=== PATIENT | male | born 1945 | race Caucasian/White ===

== ENCOUNTER 2020-08-07 09:10 | Inpatient (IN) | payer OTHER ==
[~2020-08-07] VITALS: Ht 175.3 cm; Wt 77.5 kg
[2020-08-07] VITALS (14 sets, daily range): BP systolic 117–143; BP diastolic 48–117
[2020-08-07] MEDS ORDERED: SODIUM CHLORIDE 0.9% 1,000 ML IV ONE ×3 (09:30→11:00)
[2020-08-07] MEDS ORDERED: PANTOPRAZOLE 40 MG/10 ML VIAL INJ IV ONE (09:45)
[2020-08-07 09:47] LABS: Basophils # (auto) 0 10 ^3/uL (0-0.2); Basophils % (auto) 0.2 % (0.0-2.0); Eosinophils # (auto) 0 10 ^3/uL (0-0.8); Lymphocytes # (auto) 1.2 10 ^3/uL (0.4-5.4); Monocytes # (auto) 2.1 10 ^3/uL (0-1.3); Platelet Count (auto) 472 10^3/uL (140-450)
[2020-08-07 09:48] LABS: Hematocrit 48.1 % (41.0-53.0); Hemoglobin 15.4 g/dL (13.5-17.5); Lymphocytes % (auto) 5.1 % (10.0-50.0); Mean Corpuscular Hemoglobin 29.6 pg (28.0-32.0); Mean Corpuscular Hgb Conc. 32.1 g/dL (32.0-36.0); Mean Corpuscular Volume 92.4 fL (80.0-100.0); Neutrophils # (auto) 20.5 10 ^3/uL (1.6-8.6); Neutrophils % (auto) 85.7 % (37.0-80.0); Red Blood Cells 5.21 10^6/uL (4.5-5.90); Red Cell Distribution Width 14.7 % (11.8-14.3); White Blood Cell 23.9 10^3/uL (4.4-10.8)
[2020-08-07 10:05] LABS: INR 0.98 (0.9-1.15); Partial Thromboplastin Time 25.1 sec (23.0-31.2)
[2020-08-07] MEDS ORDERED: InsuLIN REG 1unit/0.01ml Soln (100units/ml) IV ONE (10:15)
[2020-08-07 10:25] LABS: Lactic Acid w/Reflex 3.3 mmol/L (0.4-2.0); Potassium 3.8 mmol/L (3.5-5.1)
[2020-08-07 10:32] LABS: Albumin 3.9 g/dL (3.4-5.0); BUN/Creatinine Ratio 24.5; Bilirubin, Total 0.6 mg/dL (0.2-1.0); Calcium 9.5 mg/dL (8.5-10.1); Total Protein 8.1 g/dL (6.4-8.2)
[2020-08-07] MEDS ORDERED: DEXTROSE (50%) 50ML SYRG IV PRN ×2 (10:45→19:45)
[2020-08-07] MEDS ORDERED: InsuLIN R (HUMAN) 100 UNITS in SODIUM CHL 0.9% 99 ML IV SCH ×2 (10:45→20:15)
[2020-08-07] MEDS ORDERED: PIPERACILLIN-TAZOB 3.375GM 100 ML IV ONE (11:00)
[2020-08-07] MEDS ORDERED: SODIUM BICARBONATE 8.4 % INJ 50ML VIAL IV ONE (11:15)
[2020-08-07 11:20] LABS: Magnesium 3.1 mg/dL (1.6-2.6); Phosphorus 5.6 mg/dL (2.5-4.90)
[2020-08-07] MEDS: SODIUM CHLORIDE 0.9% 1,000 ML IV SCH ×4 (11:32→22:10)
[2020-08-07] MEDS: ACCU-CHEK COMFORT CURVE STRIP VI SCH ×8 (12:16→21:55)
[2020-08-07] MEDS ORDERED: ONDANSETRON HCL 4 MG/2 ML VIAL IV PRN (12:45)
[2020-08-07] MEDS ORDERED: MORPHINE SULF INJ 2 MG/ML SYRINGE 1ML IV PRN (12:45)
[2020-08-07] MEDS ORDERED: NITROGLYCERIN 0.4 MG SL TAB SL PRN (12:45)
[2020-08-07] MEDS ORDERED: SITA100T7 PO (12:57)
[2020-08-07] MEDS ORDERED: ATOR40TA52 PO (12:57)
[2020-08-07] MEDS ORDERED: METF-372 PO (12:57)
[2020-08-07] MEDS ORDERED: GLIP10TA9 PO (12:57)
[2020-08-07] MEDS ORDERED: LOSA-69 PO (12:57)
[2020-08-07] MEDS ORDERED: SODIUM CHLORIDE 0.9% 1,000 ML IV SCH (14:45)
[2020-08-07 18:52] LABS: Calcium 8.2 mg/dL (8.5-10.1); Potassium 3.5 mmol/L (3.5-5.1)
[2020-08-07] MEDS ORDERED: INSULIN LANTUS (GLARGINE) 1 /0.01ml (100units/ml) SC ONE (19:45)
[2020-08-07] MEDS: ATORVASTATIN 20 MG TAB PO SCH (21:55)
[2020-08-07] MEDS: InsuLIN REG 1unit/0.01ml Soln (100units/ml) SC SCH (22:00)
[2020-08-07 22:10] LABS: Calcium 8.5 mg/dL (8.5-10.1)
[2020-08-07 22:12] LABS: BUN/Creatinine Ratio 25.2
[2020-08-08] VITALS (20 sets, daily range): BP systolic 115–154; BP diastolic 53–75
[2020-08-08 00:59] LABS: Urine Amorphous Crystal FEW /hpf (None Seen); Urine Bacteria NONE SEEN /hpf (None Seen); Urine Blood Negative /uL (Negative); Urine Specific Gravity 1.022 (1.001-1.035); Urine WBC 2 /hpf (0 - 3)
[2020-08-08 04:54] LABS: Potassium 3.5 mmol/L (3.5-5.1)
[2020-08-08 05:00] LABS: BUN/Creatinine Ratio 27.1; Calcium 8.2 mg/dL (8.5-10.1); Magnesium 2.6 mg/dL (1.6-2.6)
[2020-08-08] MEDS: ACCU-CHEK COMFORT CURVE STRIP VI SCH ×4 (07:14→22:00)
[2020-08-08] MEDS: InsuLIN REG 1unit/0.01ml Soln (100units/ml) SC SCH ×4 (07:15→22:04)
[2020-08-08] MEDS: SODIUM CHLORIDE 0.9% 1,000 ML IV SCH (07:18)
[2020-08-08 11:35] LABS: Basophils # (auto) 0 10 ^3/uL (0-0.2); Basophils % (auto) 0.1 % (0.0-2.0); Eosinophils # (auto) 0 10 ^3/uL (0-0.8); Hematocrit 43.5 % (41.0-53.0); Hemoglobin 14.4 g/dL (13.5-17.5); Lymphocytes # (auto) 1.1 10 ^3/uL (0.4-5.4); Lymphocytes % (auto) 5.7 % (10.0-50.0); Mean Corpuscular Hemoglobin 29.6 pg (28.0-32.0); Mean Corpuscular Hgb Conc. 33.1 g/dL (32.0-36.0); Mean Corpuscular Volume 89.6 fL (80.0-100.0); Monocytes # (auto) 1.7 10 ^3/uL (0-1.3); Monocytes % (auto) 8.7 % (0.0-12.0); Neutrophils # (auto) 16.9 10 ^3/uL (1.6-8.6); Neutrophils % (auto) 85.5 % (37.0-80.0); Platelet Count (auto) 387 10^3/uL (140-450); Red Blood Cells 4.85 10^6/uL (4.5-5.90); Red Cell Distribution Width 14.7 % (11.8-14.3); White Blood Cell 19.7 10^3/uL (4.4-10.8)
[2020-08-08] MEDS ORDERED: NALOXONE HCL 0.4 MG/ML VIAL ONE (12:20)
[2020-08-08] MEDS ORDERED: LIDOCAINE VISCOUS 2% 15ML UD ONE (12:20)
[2020-08-08] MEDS ORDERED: FLUMAZENIL 0.1 MG/ML INJ 10ML MDV IV ONE (12:20)
[2020-08-08] MEDS ORDERED: SODIUM CHLORIDE LOCK 10 ML ONE (12:20)
[2020-08-08] MEDS ORDERED: diphenhdrAMINE HCL 50 MG/1 ML VL ONE (12:21)
[2020-08-08] MEDS: fentaNYL CITRATE 100 MCG/2 ML VL ONE ×2 (12:54→12:55)
[2020-08-08] MEDS: MIDAZOLAM HCL 5 MG/ML-1ML VIAL ONE ×2 (12:54→12:55)
[2020-08-08] MEDS: SUCRALFATE 1 GM/10 ML ORAL SUSP GT SCH ×2 (17:17→22:00)
[2020-08-08] MEDS: PANTOPRAZOLE 40 MG TAB PO SCH (22:00)
[2020-08-08] MEDS: ATORVASTATIN 20 MG TAB PO SCH (22:00)
[2020-08-09 04:54] VITALS: BP 162/74
[2020-08-09] MEDS: SUCRALFATE 1 GM/10 ML ORAL SUSP GT SCH ×3 (06:00→17:51)
[2020-08-09] MEDS: ACCU-CHEK COMFORT CURVE STRIP VI SCH ×3 (06:05→17:51)
[2020-08-09] MEDS: InsuLIN REG 1unit/0.01ml Soln (100units/ml) SC SCH ×3 (06:07→17:56)
[2020-08-09 06:36] LABS: Basophils # (auto) 0 10 ^3/uL (0-0.2); Basophils % (auto) 0.1 % (0.0-2.0); Eosinophils # (auto) 0 10 ^3/uL (0-0.8); Hematocrit 42.4 % (41.0-53.0); Hemoglobin 14.5 g/dL (13.5-17.5); Lymphocytes # (auto) 1.1 10 ^3/uL (0.4-5.4); Mean Corpuscular Hemoglobin 29.8 pg (28.0-32.0); Mean Corpuscular Hgb Conc. 34.2 g/dL (32.0-36.0); Mean Corpuscular Volume 87.2 fL (80.0-100.0); Monocytes # (auto) 1.4 10 ^3/uL (0-1.3); Monocytes % (auto) 7.6 % (0.0-12.0); Neutrophils % (auto) 86.3 % (37.0-80.0); Nucleated Red Blood Cells % 0.1 %; Platelet Count (auto) 417 10^3/uL (140-450); Red Blood Cells 4.86 10^6/uL (4.5-5.90); Red Cell Distribution Width 14.7 % (11.8-14.3); White Blood Cell 18.5 10^3/uL (4.4-10.8)
[2020-08-09 06:37] LABS: BUN/Creatinine Ratio 22.5; Calcium 8.9 mg/dL (8.5-10.1); Potassium 3.2 mmol/L (3.5-5.1)
[2020-08-09] MEDS: PANTOPRAZOLE 40 MG TAB PO SCH (11:53)
[2020-08-09 13:00] VITALS: BP 161/88
[2020-08-09] MEDS ORDERED: INSULIN LANTUS (GLARGINE) 1 /0.01ml (100units/ml) SC SCH ×2 (13:30→18:00)
[2020-08-09 17:00] VITALS: BP 129/77
[2020-08-09] MEDS ORDERED: BLOO-200 XX (18:51)
[2020-08-09] MEDS ORDERED: ALCO1PAD XX (18:51)
[2020-08-09] MEDS ORDERED: PANT40T PO (18:51)
[2020-08-09] MEDS ORDERED: SUCR1SUS10 PO (18:51)
[2020-08-09] MEDS ORDERED: INSU100I44 SC (18:51)
[2020-08-09] MEDS ORDERED: INSUINJ37 SC (18:51)
[2020-08-09] MEDS ORDERED: [UNRECOGNIZED DRUG - CODE] XX (18:51)
[2020-08-09 19:41] VITALS: BP 150/76
[2020-08-09 20:26] VITALS: BP 150/76
== END 2020-08-09 22:50 | disposition home health service (06) | DRG 391 ==
LOC: EDBD 09:10 → ER 09:10 → OVERFLOW 09:11 → ICU WEST 13:28 → TELE-CENTR 08-08 22:33
PROVIDERS: ADMIT Internal Medicine; ATTEND Internal Medicine
PROC: 0DB68ZX Excision of Stomach, Via Natural or Artificial Opening Endoscopic, Diagnostic (ICD-10-PCS; principal; 2020-08-08 11:30)
DX: K20.9 Esophagitis, unspecified (principal); E11.10 Type 2 diabetes mellitus with ketoacidosis without coma; K92.0 Hematemesis; I24.8 Other forms of acute ischemic heart disease; E78.5 Hyperlipidemia, unspecified; E86.0 Dehydration; G20 Parkinson's disease; I10 Essential (primary) hypertension; Z22.322 Carrier or suspected carrier of Methicillin resistant Staphylococcus aureus; K59.00 Constipation, unspecified; B96.81 Helicobacter pylori [H. pylori] as the cause of diseases classified elsewhere
CPT/HCPCS: 36415; 36600; 43239; 70450; 71045; 74176; 80048; 80053; 81001; 82010; 82805; 82962; 83036; 83605; 83735; 83930; 84100; 84484; 85025; 85610; 85730; 87040; 87081; 87086; 96361; 96365; 96366; 96367; 96375; 99291; C9113; G0378; J1815; J2250; J2543

== ENCOUNTER 2020-09-30 11:34 | Inpatient (IN) | payer OTHER ==
[~2020-09-30] VITALS: Ht 182.9 cm; Wt 67.5 kg
[~2020-09-30 11:34] MED LIST: ALCO1PAD XX; ATOR40TA52 PO; BLOO-200 XX; INSU100I44 SC; INSUINJ37 SC; LOSA-69 PO; PANT40T PO; SUCR1SUS10 PO; [UNRECOGNIZED DRUG - CODE] XX
[2020-09-30 13:14] LABS: Basophils # (auto) 0 10 ^3/uL (0-0.2); Basophils % (auto) 0.3 % (0.0-2.0); Eosinophils # (auto) 0.1 10 ^3/uL (0-0.8); Eosinophils % (auto) 0.6 % (0.0-7.0); Hematocrit 37.8 % (41.0-53.0); Hemoglobin 12.9 g/dL (13.5-17.5); Lymphocytes # (auto) 1.4 10 ^3/uL (0.4-5.4); Lymphocytes % (auto) 9.5 % (10.0-50.0); Mean Corpuscular Hemoglobin 28.8 pg (28.0-32.0); Mean Corpuscular Hgb Conc. 34.1 g/dL (32.0-36.0); Mean Corpuscular Volume 84.6 fL (80.0-100.0); Monocytes # (auto) 1.5 10 ^3/uL (0-1.3); Monocytes % (auto) 10.1 % (0.0-12.0); Neutrophils # (auto) 11.7 10 ^3/uL (1.6-8.6); Neutrophils % (auto) 79.5 % (37.0-80.0); Platelet Count (auto) 266 10^3/uL (140-450); Red Blood Cells 4.47 10^6/uL (4.5-5.90); Red Cell Distribution Width 15.4 % (11.8-14.3); White Blood Cell 14.7 10^3/uL (4.4-10.8)
[2020-09-30 15:18] LABS: Anion Gap 7 (5-15); Blood Urea Nitrogen 40 mg/dL (7-18); Calcium 9.6 mg/dL (8.5-10.1); Carbon Dioxide 24 mmol/L (21-32); Chloride 104 mmol/L (98-107); Glucose 199 mg/dL (74-106); Potassium 3.8 mmol/L (3.5-5.1); Sodium 135 mmol/L (136-145)
[2020-09-30 15:23] LABS: Alanine Aminotransferase 18 U/L (16-61); Alkaline Phosphatase 109 U/L (45-117); Aspartate Aminotransferase 12 U/L (15-37); BUN/Creatinine Ratio 25.6; Bilirubin, Total 0.3 mg/dL (0.2-1.0); GFR African American 56 mL/min; GFR Non-African American 46 mL/min; Total Protein 6.2 g/dL (6.4-8.2)
[2020-09-30] MEDS ORDERED: NITROGLYCERIN 0.4 MG SL TAB SL PRN (16:45)
[2020-09-30] MEDS ORDERED: SOD CHL 0.45% 1,000 ML IV ONE (16:45)
[2020-09-30] MEDS ORDERED: ONDANSETRON HCL 4 MG/2 ML VIAL IV PRN (16:45)
[2020-09-30] MEDS ORDERED: ACETAMINOPHEN 325 MG TAB PO PRN (16:45)
[2020-09-30] MEDS ORDERED: MORPHINE SULF INJ 2 MG/ML SYRINGE 1ML IV PRN ×2 (16:45)
[2020-09-30] MEDS ORDERED: DEXTROSE (50%) 50ML SYRG IV PRN (17:00)
[2020-09-30] MEDS: SUCRALFATE 1 GM/10 ML ORAL SUSP PO SCH ×2 (17:00→22:17)
[2020-09-30] MEDS: ACCU-CHEK COMFORT CURVE STRIP VI SCH ×2 (17:10→22:18)
[2020-09-30] MEDS: cefTRIAXone 1GM/50ML D5W 50 ML IV SCH (17:13)
[2020-09-30] MEDS: InsuLIN REG 1unit/0.01ml Soln (100units/ml) SC SCH ×2 (17:18→22:18)
[2020-09-30] MEDS: ATORVASTATIN 20 MG TAB PO SCH (17:26)
--- NOTE | 2020-09-30 18:25 | NUR ---
Patient transferred to unit in stable condition.
[2020-09-30 18:55] VITALS: BP 159/84
--- NOTE | 2020-09-30 19:30 | NUR ---
Opening Shift Note Assumed care of patient, awake and alert. No S/S of distress/SOB or pain. Safety measures in place, bed in lowest locked position, bed rails raised x2, call light within reach. Lane catheter noted, preset on arrival, pt states catheter was placed on due to urinary incontinence. All needs addressed at this time. Instructed on POC and to call for assist PRN, will continue to monitor for changes Q1hr and PRN.
[2020-09-30 19:45] VITALS: BP 147/62
--- NOTE | 2020-09-30 21:00 | NUR ---
Admission completed with patient, however, patient is poor historian. Pt unaware of home meds. Will attempt to reach for further clarification on PMH and reconcile meds.
[2020-09-30 22:00] VITALS: BP 147/62
[2020-09-30] MEDS: PANTOPRAZOLE 40 MG TAB PO SCH (22:17)
[2020-09-30 22:50] LABS: Folate (Folic Acid) 9.36 ng/mL (5.38-24)
[2020-10-01 05:20] VITALS: BP 132/65
[2020-10-01] MEDS: ACCU-CHEK COMFORT CURVE STRIP VI SCH ×4 (06:23→21:57)
[2020-10-01] MEDS: SUCRALFATE 1 GM/10 ML ORAL SUSP PO SCH ×4 (06:31→21:56)
[2020-10-01] MEDS: InsuLIN REG 1unit/0.01ml Soln (100units/ml) SC SCH ×5 (06:32→22:02)
[2020-10-01 07:59] LABS: Basophils # (auto) 0 10 ^3/uL (0-0.2); Basophils % (auto) 0.3 % (0.0-2.0); Eosinophils # (auto) 0.4 10 ^3/uL (0-0.8); Eosinophils % (auto) 3.5 % (0.0-7.0); Hematocrit 36.7 % (41.0-53.0); Hemoglobin 12.1 g/dL (13.5-17.5); Lymphocytes # (auto) 1.8 10 ^3/uL (0.4-5.4); Lymphocytes % (auto) 15.7 % (10.0-50.0); Mean Corpuscular Hemoglobin 27.7 pg (28.0-32.0); Mean Corpuscular Hgb Conc. 32.8 g/dL (32.0-36.0); Mean Corpuscular Volume 84.5 fL (80.0-100.0); Monocytes # (auto) 1.1 10 ^3/uL (0-1.3); Monocytes % (auto) 9.8 % (0.0-12.0); Neutrophils # (auto) 7.9 10 ^3/uL (1.6-8.6); Neutrophils % (auto) 70.7 % (37.0-80.0); Platelet Count (auto) 258 10^3/uL (140-450); Red Blood Cells 4.35 10^6/uL (4.5-5.90); Red Cell Distribution Width 15.1 % (11.8-14.3); White Blood Cell 11.2 10^3/uL (4.4-10.8)
[2020-10-01 08:43] LABS: BUN/Creatinine Ratio 14.9; Calcium 8.8 mg/dL (8.5-10.1); Magnesium 1.9 mg/dL (1.6-2.6)
[2020-10-01 08:57] LABS: Potassium 2.7 mmol/L (3.5-5.1)
[2020-10-01 09:00] VITALS: BP 126/68
--- NOTE | 2020-10-01 09:00 | NUR ---
Critical Potassium Hospitalist paged regarding critical potassium 2.7 awaiting call back.
--- NOTE | 2020-10-01 09:30 | NUR ---
Critical Potassium Verbal orders received for potassium replacement. Orders read back and verified. Will enter in eMAR.
[2020-10-01] MEDS ORDERED: POTASSIUM CHLORIDE 40 MEQ, LIDOCAINE 1% (LOCAL ANESTH.) 4 ML in SODIUM CHL 0.9% 250 ML IV ONE (09:45)
[2020-10-01] MEDS ORDERED: POTASSIUM CHL 20 Meq TABLET PO ONE (09:45)
[2020-10-01] MEDS: PANTOPRAZOLE 40 MG TAB PO SCH ×2 (10:07→21:56)
[2020-10-01] MEDS: cefTRIAXone 1GM/50ML D5W 50 ML IV SCH (10:07)
[2020-10-01] MEDS: INSULIN LANTUS (GLARGINE) 1 /0.01ml (100units/ml) SC SCH (10:12)
--- NOTE | 2020-10-01 12:13 | NUR ---
Orthostatic Vitals Supine - P. 69, R. 14, O2. 98, B/P. 143/71 Sitting - P. 73, R. 16, O2. 97, B/P. 136/67 Standing - P. 82, R. 14, O2. 99, B/P. 133/68
[2020-10-01 13:00] VITALS: BP 136/67
--- NOTE | 2020-10-01 14:15 | NUR ---
Phone Call received from Dr. Augustine Patient to be transferred to higher level of care, he needs TAVR done. As per MD, [facility] was already notified.
--- NOTE | 2020-10-01 15:44 | NUR ---
Acute Care Transfer Spoke with Dr. Lubin ([phone] cell / Office [phone]) accepting MD at [facility] regarding patient. house manager will fax required documents to him. He will follow up with [facility] regarding patient's transfer.
--- NOTE | 2020-10-01 15:58 | NUR ---
EEG-ELECTROENCEPHALOGRAM COMPLETED AT BEDSIDE @ 0500. VY MCKEON.
--- NOTE | 2020-10-01 16:29 | NUR ---
1600 10/01/20 - faxed to [facility] at [phone], faxed to carbon paper coating supervisor Nicolle at [phone], faxed to Dr Hairston at [phone] and to [facility] at [phone], face sheet, order for transfer to higher level of care for severe aortic stenosis, needs TAVR, H/P, ECHO, labs, meds, discharge summary, Contacted [facility] at [phone] patient on "will call". [facility] counseling case manager provided the following authorizations for facility [id number] and for [facility] transportation [phone]. Contacted Dr Hairston at [phone] who stated the nursing carbon paper coating supervisor Nicolle had informed him that currently there are no beds available but will try to get patient moved later tonight or tomorrow. Informed nurse BRL of information above.
--- NOTE | 2020-10-01 16:50 | NUR ---
Room Change Patient transferred from room 251B to room 215A with all personal belongings.
--- NOTE | 2020-10-01 17:15 | NUR ---
Room Change Patient transferred from room 215A to room 209 with all personal belongings.
[2020-10-01] MEDS: ATORVASTATIN 20 MG TAB PO SCH (17:51)
--- NOTE | 2020-10-01 19:15 | NUR ---
Opening Shift Note Assumed care of patient, awake and alert. No S/S of distress/SOB or pain. Safety measures in place, bed in lowest locked position, bed raisl raised x2, call light within reach, bed alarm armed. All needs addressed at this time. Pt awaiting bed assignment at [facility] for higher level of care. Instructed on POC and to call for assist PRN, will continue to monitor for changes Q1hr and PRN.
[2020-10-01 22:00] VITALS: BP 145/68
[2020-10-02 05:00] VITALS: BP 156/83
[2020-10-02 05:51] LABS: Basophils # (auto) 0 10 ^3/uL (0-0.2); Basophils % (auto) 0.4 % (0.0-2.0); Eosinophils # (auto) 0.6 10 ^3/uL (0-0.8); Eosinophils % (auto) 5.2 % (0.0-7.0); Hemoglobin 12.6 g/dL (13.5-17.5); Lymphocytes # (auto) 2.4 10 ^3/uL (0.4-5.4); Lymphocytes % (auto) 23.1 % (10.0-50.0); Mean Corpuscular Hemoglobin 27.9 pg (28.0-32.0); Mean Corpuscular Hgb Conc. 33.2 g/dL (32.0-36.0); Mean Corpuscular Volume 84.1 fL (80.0-100.0); Monocytes # (auto) 1.1 10 ^3/uL (0-1.3); Monocytes % (auto) 10.9 % (0.0-12.0); Neutrophils # (auto) 6.3 10 ^3/uL (1.6-8.6); Neutrophils % (auto) 60.4 % (37.0-80.0); Platelet Count (auto) 298 10^3/uL (140-450); Red Blood Cells 4.51 10^6/uL (4.5-5.90); Red Cell Distribution Width 14.8 % (11.8-14.3); White Blood Cell 10.5 10^3/uL (4.4-10.8)
[2020-10-02 06:12] LABS: Calcium 9.1 mg/dL (8.5-10.1); Potassium 3.3 mmol/L (3.5-5.1)
[2020-10-02 06:15] LABS: Albumin 3.2 g/dL (3.4-5.0); BUN/Creatinine Ratio 13.9
[2020-10-02 06:18] LABS: Bilirubin, Total 0.6 mg/dL (0.2-1.0); Total Protein 7.2 g/dL (6.4-8.2)
[2020-10-02] MEDS: ACCU-CHEK COMFORT CURVE STRIP VI SCH ×4 (06:26→21:55)
[2020-10-02] MEDS: SUCRALFATE 1 GM/10 ML ORAL SUSP PO SCH ×4 (06:26→21:55)
[2020-10-02] MEDS: InsuLIN REG 1unit/0.01ml Soln (100units/ml) SC SCH ×4 (06:46→22:01)
--- NOTE | 2020-10-02 07:20 | NUR ---
Opening Shift Note Assumed care of patient, resting comfortably in bed and alert. No S/S of distress/SOB or pain. Patient's skin is in tact and bowel sounds throughout. Weak pulses palpated in the lower extremities. Leg bag secured to the right leg with 300 ML noted. Updated patient his transfer and that we are awaiting a bed assignment from [facility] Patient verbalized understanding. Safety measures are in place and the call light is within reach of the patient. Will continue to monitor for changes Q1hr and PRN.
[2020-10-02 08:00] VITALS: BP 156/83
[2020-10-02 09:00] VITALS: BP 154/77
[2020-10-02] MEDS ORDERED: POTASSIUM CHL 20 Meq TABLET PO ONE (09:00)
--- NOTE | 2020-10-02 09:45 | NUR ---
Dr. Augustine at bedside Dr. Augustine at bedside discussing the POC with the patient. All questions and concerns were answered at this time.
[2020-10-02] MEDS: cefTRIAXone 1GM/50ML D5W 50 ML IV SCH (10:28)
[2020-10-02] MEDS: PANTOPRAZOLE 40 MG TAB PO SCH ×2 (10:28→21:55)
[2020-10-02] MEDS: INSULIN LANTUS (GLARGINE) 1 /0.01ml (100units/ml) SC SCH (10:30)
--- NOTE | 2020-10-02 12:59 | NUR ---
High BP Dr. Augustine called regarding BP 166/ 87, 154/77. Message left.
[2020-10-02 13:00] VITALS: BP 166/87
--- NOTE | 2020-10-02 14:35 | NUR ---
Assessment Patient is a 75 year old male, who is alert and oriented, patient cognitive abilities are intact. Patient states that he can do all ADL's and ambulates with a walker independently. Patient is retired and receives social securities benefits as income. Patient states that he has history of diabetes type 2. Patient states that he will return home post discharge from [facility], patient states that his ([employer] [phone]), will provide transportation post discharge. Patient stated that his is his support system. Patient is receptive to receive Advance Directive forms. Discharge planning: Patient will return home post discharge and follow up with his PCP post discharge. Patient has all diabetic supplies to resume diabetic home care post discharge. SW will provide Advance Directive to patient. Addendum: 10/02/20 at 1441 by SUDHA MOSES SS Amended: Links added.
--- NOTE | 2020-10-02 15:06 | NUR ---
1500 10/02/20 - Contacted [place] [facility] labor gang supervisor at [phone], regarding pending transfer. Per labor gang supervisor Diamond, there are currently 26 tele patients waiting bed assignments holding in the ED. She stated it maybe Monday before they will have a bed available for patient. Attempted to contact Dr Augustine left message on voice mail. Informed nurse ACM of above information.
[2020-10-02] MEDS ORDERED: hydrALAZINE HCL 20 MG/ML VL IV PRN (15:45)
[2020-10-02 17:01] VITALS: BP 143/74
--- NOTE | 2020-10-02 19:20 | NUR ---
Opening Shift Note Assumed care of patient, awake and alert. No S/S of distress/SOB or pain. Safety measures in place, bed in lowest locked position, bed rails raised x2, call light within reach, bed alarm armed. All needs addressed at this time. Instructed on POC and to call for assist PRN, will continue to monitor for changes Q1hr and PRN.
[2020-10-02] MEDS: ATORVASTATIN 20 MG TAB PO SCH (21:11)
[2020-10-02 22:00] VITALS: BP 128/69
[2020-10-03 05:00] VITALS: BP 117/63
[2020-10-03] MEDS: ACCU-CHEK COMFORT CURVE STRIP VI SCH ×4 (06:45→21:46)
[2020-10-03] MEDS: SUCRALFATE 1 GM/10 ML ORAL SUSP PO SCH ×4 (06:45→21:50)
[2020-10-03] MEDS: InsuLIN REG 1unit/0.01ml Soln (100units/ml) SC SCH ×4 (06:46→21:52)
--- NOTE | 2020-10-03 08:10 | NUR ---
Opening Note Assumed care of patient, he is A& O x4 with periods of confusion regarding situation. Patient has repeatedly asked the same question 3 times and an answer has been given, he forgets that he has already been told the answer. POC discussed, no s/s of distress. Bed alarm on, in low, locked position, call light and belongings within reach. Will continue to monitor.
[2020-10-03 09:00] VITALS: BP 94/69
--- NOTE | 2020-10-03 09:24 | NUR ---
Dr. Augustine at bedside. Informed me that the patient to be discharged home, home health has been arranged, Dr. Salazar and Dr. Lubin cleared to go home and follow up with doctor on Monday or Monday at Dr. Lubin office. Dr. Augustine spoke to and discussed POC to go home, patient does not want to stay over the weekend to wait for a bed at [facility].
--- NOTE | 2020-10-03 09:44 | NUR ---
called, she talked the patient into staying the weekend. Informed Dr. Auugstine, patient would like to stay, and he is complaining of numbness to the left hand.
[2020-10-03] MEDS: INSULIN LANTUS (GLARGINE) 1 /0.01ml (100units/ml) SC SCH (10:51)
[2020-10-03] MEDS: PANTOPRAZOLE 40 MG TAB PO SCH ×2 (10:53→21:49)
[2020-10-03] MEDS: ENOXAPARIN SOD 40 MG/0.4 ML SYRINGE SC SCH (10:53)
[2020-10-03 11:36] LABS: BUN/Creatinine Ratio 15.6; Calcium 9.1 mg/dL (8.5-10.1); Potassium 3.8 mmol/L (3.5-5.1)
[2020-10-03 12:34] VITALS: BP 121/62
--- NOTE | 2020-10-03 14:17 | NUR ---
Nutrition Assessment Est energy needs 1607-8921 kcal (20-25 kcal/kg BW 77.1kg) Est protein needs 62-77g (0.8-1g/kg BW 77.1kg) WIll monitor and reassess prn. Addendum: 10/03/20 at [address] Amended: Links added.
[2020-10-03 16:50] VITALS: BP 140/85
[2020-10-03] MEDS: ATORVASTATIN 20 MG TAB PO SCH (17:30)
--- NOTE | 2020-10-03 19:15 | NUR ---
Opening Shift Note Received report from Coco MCCLELLAN. Assumed care of patient, awake and alert. No S/S of distress/SOB or pain. Instructed on POC and to call for assist PRN. Fall precaution measures in place, will continue to monitor for changes Q1hr and PRN.
[2020-10-03 23:22] VITALS: BP 110/64
--- NOTE | 2020-10-04 05:40 | NUR ---
Patient's bed alarm went off. This RN went to the room and saw the patient sitting on the edge of the bed and states he needs to go to the potty for bowel movement. RN assisted the patient to the bedside commode and noticed the unsteady gait. RN then put the call light within reach on the chair by the commode and told the patient to call once he is done so RN can assist him back to the bed, patient verbalized understanding.
--- NOTE | 2020-10-04 05:45 | NUR ---
medical secretary receptionist Maci answered the call from the room. The junior legal secretary ask what's the patient need from his nurse and answered non challantly that he is on the floor. RN rushed to the room and saw patient sitting on the floor. RN reminded the patient that he needs to call once done, but patient replied "I thought I can go back by myself." RN assisted the patient back to the bed with the help of Daniela MCCLELLAN and provided a walker. Assessed patient post fall, stated no pain, vitals T98.4 HR82 RR18 sat95% BP 111/69. Patient only insisting that there is something wrong with the Lane, that it is not properly connected or somebody disconnected it. I assured patient that the Lane is there and functioning properly, patient verbalized understanding. Will inform hospitalist and will continue to monitor.
[2020-10-04 05:52] VITALS: BP 120/78
[2020-10-04] MEDS: ACCU-CHEK COMFORT CURVE STRIP VI SCH ×4 (06:40→21:43)
[2020-10-04] MEDS: SUCRALFATE 1 GM/10 ML ORAL SUSP PO SCH ×4 (06:40→21:43)
[2020-10-04] MEDS: InsuLIN REG 1unit/0.01ml Soln (100units/ml) SC SCH ×4 (06:42→21:44)
--- NOTE | 2020-10-04 07:02 | NUR ---
Paged hospitalist twice, still awaiting for call back.
--- NOTE | 2020-10-04 07:05 | NUR ---
Hospitalist Carl called back, informed him of the incidence and post fall assessment. Per hospitalist observe and continue monitor the patient. Care endorsed to Coco MCCLELLAN.
[2020-10-04 08:28] VITALS: BP 131/67
[2020-10-04 09:08] LABS: Basophils # (auto) 0.1 10 ^3/uL (0-0.2); Basophils % (auto) 0.5 % (0.0-2.0); Eosinophils # (auto) 0.5 10 ^3/uL (0-0.8); Eosinophils % (auto) 4.5 % (0.0-7.0); Hemoglobin 13.1 g/dL (13.5-17.5); Lymphocytes # (auto) 2.4 10 ^3/uL (0.4-5.4); Lymphocytes % (auto) 23.3 % (10.0-50.0); Mean Corpuscular Hemoglobin 27.7 pg (28.0-32.0); Mean Corpuscular Hgb Conc. 32.6 g/dL (32.0-36.0); Mean Corpuscular Volume 84.9 fL (80.0-100.0); Monocytes # (auto) 1.1 10 ^3/uL (0-1.3); Monocytes % (auto) 10.7 % (0.0-12.0); Neutrophils # (auto) 6.1 10 ^3/uL (1.6-8.6); Nucleated Red Blood Cells % 0.3 %; Platelet Count (auto) 404 10^3/uL (140-450); Red Blood Cells 4.71 10^6/uL (4.5-5.90); Red Cell Distribution Width 14.6 % (11.8-14.3); White Blood Cell 10.1 10^3/uL (4.4-10.8)
[2020-10-04 09:34] LABS: Potassium 3.4 mmol/L (3.5-5.1)
[2020-10-04 09:41] LABS: BUN/Creatinine Ratio 15.7
[2020-10-04] MEDS ORDERED: POTASSIUM CHL 20 Meq TABLET PO ONE (10:00)
[2020-10-04] MEDS: INSULIN LANTUS (GLARGINE) 1 /0.01ml (100units/ml) SC SCH (10:35)
[2020-10-04] MEDS: PANTOPRAZOLE 40 MG TAB PO SCH ×2 (10:45→21:43)
[2020-10-04] MEDS: ENOXAPARIN SOD 40 MG/0.4 ML SYRINGE SC SCH (10:46)
[2020-10-04 13:37] VITALS: BP 102/63
[2020-10-04 16:24] VITALS: BP 102/66
[2020-10-04] MEDS: ATORVASTATIN 20 MG TAB PO SCH (17:13)
[2020-10-05 02:56] VITALS: BP 97/137
[2020-10-05 05:46] VITALS: BP 105/62
[2020-10-05] MEDS: SUCRALFATE 1 GM/10 ML ORAL SUSP PO SCH ×3 (06:32→17:00)
[2020-10-05] MEDS: ACCU-CHEK COMFORT CURVE STRIP VI SCH ×3 (06:32→17:00)
[2020-10-05] MEDS: InsuLIN REG 1unit/0.01ml Soln (100units/ml) SC SCH ×3 (06:33→17:00)
[2020-10-05 06:34] LABS: Potassium 4.1 mmol/L (3.5-5.1)
[2020-10-05 06:57] LABS: Calcium 9.1 mg/dL (8.5-10.1); Magnesium 2.1 mg/dL (1.6-2.6)
--- NOTE | 2020-10-05 07:30 | NUR ---
Opening Note Received report from [employer] supervisor RN. Patient is awake, alert and oriented x4. No signs or symptoms of distress noted at this time. Patient is on room air, respirations even and unlabored. Patient denies pain at this time. Reviewed plan of care with patient, patient verbalized understanding. Bed in low and locked position, call light within reach. Bed alarm on for safety. Will continue to monitor Q1 hour and PRN.
[2020-10-05 09:00] VITALS: BP 129/79
[2020-10-05] MEDS: ENOXAPARIN SOD 40 MG/0.4 ML SYRINGE SC SCH (10:40)
[2020-10-05] MEDS: PANTOPRAZOLE 40 MG TAB PO SCH (10:40)
[2020-10-05] MEDS: INSULIN LANTUS (GLARGINE) 1 /0.01ml (100units/ml) SC SCH (10:41)
[2020-10-05 12:48] VITALS: BP 113/70
--- NOTE | 2020-10-05 14:02 | NUR ---
1400 10/05/20 - Faxed to [facility] therapeutic case manager at [phone], face sheet, order for follow-up/referral with Dr Lubin within< week, H/P, discharge summary. Pending review and approved authorizations.
[2020-10-05 14:19] VITALS: BP 146/72
--- NOTE | 2020-10-05 16:30 | NUR ---
Consultation [facility] has faxed information to [facility] for home health services. [facility] is waiting for acceptance approval. Addendum: 10/05/20 at 1633 by SUDHA WHITAKER Amended: Links added.
[2020-10-05 17:14] VITALS: BP 146/75
--- NOTE | 2020-10-05 17:28 | NUR ---
Spoke to Nicolle Valverde in case management, she will follow up with patients tomorrow with follow up appointments, and it is ok to continue with discharge.
[2020-10-05] MEDS: ATORVASTATIN 20 MG TAB PO SCH (18:00)
--- NOTE | 2020-10-05 18:23 | NUR ---
DISCHARGE Discharge instructions given as ordered. Encourage to follow up with PMD as instructed. All questions and concerns addressed. Patient verbalized understanding. Medication reconciliation form completed and copy given to patient. IV catheter removed, catheter intact, pressure dressing applied. cafeteria monitor removed and sent back to ICU. Patient taken down to private vehicle with all personal belongings, accompanied by staff members. No signs or symptoms of distress noted at this time.
== END 2020-10-05 18:23 | disposition home health service (06) | DRG 306 ==
LOC: EDBD 11:34 → ER 11:34 → TELE-EAST 11:35 → TELE-CENTR 10-01 16:42 → TELE-WESTW 10-05 15:03
PROVIDERS: ADMIT Internal Medicine; ATTEND Internal Medicine
DX: I35.0 Nonrheumatic aortic (valve) stenosis (principal); G93.41 Metabolic encephalopathy; N17.0 Acute kidney failure with tubular necrosis; R55 Syncope and collapse; D64.9 Anemia, unspecified; N18.9 Chronic kidney disease, unspecified; D72.829 Elevated white blood cell count, unspecified; E11.40 Type 2 diabetes mellitus with diabetic neuropathy, unspecified; E11.22 Type 2 diabetes mellitus with diabetic chronic kidney disease; E78.5 Hyperlipidemia, unspecified; E87.6 Hypokalemia; F17.200 Nicotine dependence, unspecified, uncomplicated; Z20.828 Contact with and (suspected) exposure to other viral communicable diseases; H54.62 Unqualified visual loss, left eye, normal vision right eye; I12.9 Hypertensive chronic kidney disease with stage 1 through stage 4 chronic kidney disease, or unspecified chronic kidney disease; N40.0 Benign prostatic hyperplasia without lower urinary tract symptoms; Z79.4 Long term (current) use of insulin; Z82.49 Family history of ischemic heart disease and other diseases of the circulatory system; Z83.3 Family history of diabetes mellitus; Z86.73 Personal history of transient ischemic attack (TIA), and cerebral infarction without residual deficits; Z95.2 Presence of prosthetic heart valve
CPT/HCPCS: 36415; 70450; 70551; 71045; 80048; 80053; 82607; 82746; 82962; 83735; 84443; 84484; 85025; 87426; 93005; 93306; 95819; 96360; 97116; 97163; 97530; G0378; J0696; J1815; J2001